=== PATIENT | male | born 1975 | race Caucasian/White ===

== ENCOUNTER 2021-09-09 04:03 | Inpatient (IN) | payer MEDICAID, SELFPAY ==
[2021-09-09 04:23] VITALS: BP 101/70; PULSE 96; RESP 16; TEMP 36.3; O2SAT 98
[2021-09-09 04:25] VITALS: BMI 20.2
[2021-09-09] MEDS: LORazepam 2 mg Tablet PO (04:48)
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
[2021-09-09] MEDS: fluoxetine 20 mg Capsule PO (10:18)
--- NOTE | 2021-09-09 12:04 | PC.OT ---
OT orders recieved and OT eval attempted x2 this date. Pt laying in bed, ignoring therapist x2 occassions. RN stated to be careful around pt. Will attempt Sunday.
[2021-09-09] MEDS: quetiapine 25 mg Tablet 50 MG PO (12:22)
[2021-09-09 14:00] VITALS: BP 118/81; PULSE 82; RESP 17; TEMP 36.6; O2SAT 97
[2021-09-09] MEDS: OLANZapine 5 mg ODT PO (16:50)
--- NOTE | 2021-09-09 16:51 | PC.NURSE ---
Patient at nurses station saying he is freaking out. Zydis 5 mg sl given.
[2021-09-09 22:00] VITALS: BP 118/81; PULSE 82; RESP 17; TEMP 36.6; O2SAT 97
[2021-09-10] MEDS: quetiapine 100 mg Tablet 500 MG PO ×2 (03:31→19:46)
[2021-09-10] MEDS: gabapentin 300 mg Capsule 600 MG PO ×4 (03:32→19:46)
[2021-09-10] MEDS: diazePAM 5 mg Tablet 10 MG PO ×2 (03:54→19:46)
[2021-09-10] MEDS: fluoxetine 20 mg Capsule PO (08:38)
[2021-09-10] MEDS: quetiapine 25 mg Tablet 50 MG PO ×2 (08:39→13:36)
--- NOTE | 2021-09-10 11:06 | W.PM.NPUPNS ---
Subjective NPU Subjective: He was noncompliant with vital signs and refused his bedtime medication last night. He came in requested them at 4:00 in the morning and was given them. He is now in bed with his head covered. It took quite a bit of coaxing to have him uncover his head. His speech is mostly unintelligible mumbling. I think he said something about hallucinations but I could not get him to say what the hallucinations were. He said something about wanting to be transferred to [place]. I could not understand why he wanted to be transferred. He could not tell me why he refused his medication last night. He tried to say something when I asked but it was only mumbling. He was very groggy and almost fell asleep while we were talking. Mental Status Exam MSE Comments: This is a 45-year-old thin male who appears approximately his stated age. Initially he was very groggy and difficult to talk to. He is bald. He is dressed in hospital scrubs. psychomotor activity is decreased Speech is difficult to understand and frequently mumbling. It became a little bit easier to understand as he woke up but still many words are mumbling and I cannot understand most of what he is saying. Alert after woken up. Attention and concentration appear to be normal. Memory is intact Mood is depressed. Affect is mildly dysphoric somewhat irritable Thought process is probably logical and goal-directed. Thought content: Admits to auditory but no visual hallucinations. No delusions or paranoia are noted. He continues to have suicidal ideation. No homicidal ideation. Fund of knowledge is average. Insight and judgment appear to be poor. Impulse control is poor. Cognition: Patient Appearance: Disheveled/Poor Hygiene Ability to Follow Directions: Good Patient Orientation (long list): Person and Place Comprehension Ability: No Impairment Hallucination Type: None Delusion Description: Not Present Thought Process: Circumstantial Affect: Affect Description: Flat Behavior: Patient Behavior: Withdrawn Speech Pattern: Clear Vitals/I&O/Wt Last Vital Signs Temp 97.9 F 09/09/21 22:00 Pulse 82 09/09/21 22:00 Resp 17 09/09/21 22:00 BP 118/81 09/09/21 22:00 Pulse Ox 97 09/09/21 22:00 Weight last 48 hrs Weight 64 kg A&P Assessment and plan (1) Methamphetamine abuse: Status: Acute (2) Alcoholic: Status: Acute (3) Major depressive disorder: Status: Acute (4) Psychosis: Status: Acute (5) Suicidal ideation: Status: Acute Plan This is a 45-year-old male who reports methamphetamine and alcohol addiction since age 17 and a previous diagnosis of OCD, bipolar and schizophrenia Plan: 1. Continue current medication. 2. Continue every 15 minute checks for safety. 3. Encourage individual, group and milieu therapies. 4. Encourage sober living treatment after discharge at the highest level of care to which he is willing to commit. 5. We will monitor for safety for himself in the community prior to discharge. Involuntary Hold Information 96 Hour Hold: 96 Hour Involuntary Admission: No Attestations NPU Medical Necessity Statement*: Inpatient hospitalization is medically necessary and the clinically appropriate intervention at this time. We will initiate medications and make changes as indicated. Coding Level of Care Code Acute Bell Clerk for Ham Kruse Diagnoses Methamphetamine abuse F15.10 Alcoholic F10.20 Major depressive disorder F32.9 Psychosis F29 Suicidal ideation R45.857
[2021-09-10 14:00] VITALS: BP 121/72; PULSE 99; RESP 15; TEMP 36.6; O2SAT 98
[2021-09-10] MEDS: hyDROXYzine 25 mg Capsule 50 MG PO (18:47)
--- NOTE | 2021-09-10 18:47 | PC.NURSE ---
prn VISTARIL 50 MG GIVEN PO PER PT C/O STATED ANXIETY
[2021-09-10 20:41] VITALS: BP 104/75; PULSE 94; RESP 20; TEMP 36.6; O2SAT 97
[2021-09-11 06:00] VITALS: BP 100/68; PULSE 98; RESP 18; TEMP 36.8; O2SAT 94
[2021-09-11] MEDS: fluoxetine 20 mg Capsule PO (08:30)
[2021-09-11] MEDS: quetiapine 25 mg Tablet 50 MG PO ×2 (08:30→12:29)
[2021-09-11] MEDS: gabapentin 300 mg Capsule 600 MG PO ×3 (08:30→21:13)
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
[2021-09-11 13:35] VITALS: BP 85/52; PULSE 108; RESP 18; TEMP 36.7; O2SAT 99
[2021-09-11 20:44] VITALS: BP 94/58; PULSE 83; RESP 16; TEMP 36.5; O2SAT 92
[2021-09-11] MEDS: quetiapine 100 mg Tablet 500 MG PO (21:12)
[2021-09-11] MEDS: diazePAM 5 mg Tablet 10 MG PO (21:12)
[2021-09-12 06:00] VITALS: BP 98/63; PULSE 72; RESP 14; TEMP 36.7; O2SAT 96
[2021-09-12] MEDS: gabapentin 300 mg Capsule 600 MG PO ×3 (07:54→20:24)
[2021-09-12] MEDS: quetiapine 25 mg Tablet 50 MG PO ×2 (07:54→12:45)
[2021-09-12] MEDS: fluoxetine 20 mg Capsule 40 MG PO (07:55)
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
[2021-09-12] MEDS: hyDROXYzine 25 mg Capsule 50 MG PO (12:17)
--- NOTE | 2021-09-12 12:18 | PC.NURSE ---
Patient at nurses station requesting medication for anxiety. Hydroxizine 50 mg po given for this.
[2021-09-12 14:00] VITALS: BP 95/64; PULSE 108; RESP 17; TEMP 36.5; O2SAT 98
[2021-09-12] MEDS: quetiapine 100 mg Tablet 500 MG PO (20:24)
[2021-09-12] MEDS: diazePAM 5 mg Tablet 10 MG PO (20:24)
[2021-09-12 20:35] VITALS: BP 108/71; PULSE 103; RESP 16; TEMP 37.2; O2SAT 98
[2021-09-13 06:00] VITALS: RESP 18
[2021-09-13] MEDS: quetiapine 25 mg Tablet 50 MG PO ×2 (08:47→13:22)
[2021-09-13] MEDS: fluoxetine 20 mg Capsule 40 MG PO (08:47)
[2021-09-13] MEDS: gabapentin 300 mg Capsule 600 MG PO ×3 (08:48→20:27)
[2021-09-13] MEDS: hyDROXYzine 25 mg Capsule 50 MG PO (11:58)
--- NOTE | 2021-09-13 12:00 | PC.NURSE ---
Hydroxyzine 50 mg po given for complaints of anxiety.
[2021-09-13 14:00] VITALS: RESP 18
--- NOTE | 2021-09-13 14:21 | PC.SOCIAL ---
Patient did not attend group.
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
[2021-09-13] MEDS: acetaminophen 325 mg Tablet 650 MG PO (16:10)
--- NOTE | 2021-09-13 16:12 | PC.NURSE ---
Patient voices c/o headache. Give tylenol 650 mg po for this.
[2021-09-13] MEDS: diazePAM 5 mg Tablet 10 MG PO (20:27)
[2021-09-13] MEDS: quetiapine 100 mg Tablet 500 MG PO (20:27)
[2021-09-13 21:22] VITALS: BP 108/71; PULSE 93; RESP 19; TEMP 36.8; O2SAT 97
[2021-09-14 06:00] VITALS: BP 105/67; PULSE 97; RESP 17; TEMP 36.1; O2SAT 92
[2021-09-14] MEDS: gabapentin 300 mg Capsule 600 MG PO (08:31)
[2021-09-14] MEDS: fluoxetine 20 mg Capsule 40 MG PO (08:31)
[2021-09-14] MEDS: quetiapine 25 mg Tablet 50 MG PO ×2 (08:31→11:49)
--- NOTE | 2021-09-14 10:38 | W.PM.NPUDCS ---
Diagnoses at Discharge Discharge Diagnosis (1) Methamphetamine abuse: Status: Acute (2) Alcoholic: Status: Acute (3) Major depressive disorder: Status: Acute (4) Psychosis: Status: Acute (5) Suicidal ideation: Status: Acute Reason for Visit Reason for Visit: ETOH, Resp failure Brief History: [facility] [address] [place] [address] History & Physical Report Signed Patient: Lake Ken MR#: [id number] : 1975 Age/Sex: 45 / M HPI NPU History of Present Illness Lake Ken?is a 45-year-old male who was transferred from [facility] in [facility].? He was evidently kicked out of a correction house because of alcohol intoxication.? He says that he intentionally drank enough to try to kill himself.? He was found passed out behind a dumpster.? He required intubation.? When he was extubated he started making numerous suicidal statements.? He said that he was worthless and deserves to .? He did not want to be alive anymore.? He says that he has given drugs to many people and wound up in the lives.? He has been using alcohol and methamphetamine to excess since he was 16 years old.? The longest time he has been free from methamphetamine was about 6 months.? He says he hears voices even when he is not using methamphetamine.? He says that he has been diagnosed with depression, anxiety, OCD, bipolar and schizophrenia.? He could not tell me what OCD symptoms he had.? He became belligerent several times in the hospital.? 1 time he required restraints after destroying a sink and banging the window in his room.? He tried to escape his room.? Psychiatry was consulted and recommended Seroquel titrated up to 50 mg twice a day and 500 mg at bedtime.? Valium, 10 mg at bedtime, Prozac 20 mg every morning.? He has been on those medications for the last couple of weeks.? He was given Xanax and Ativan at times but those were discontinued when the Valium was started.? He was also given some doses of Geodon presumably for agitation.? He was not interested in talking this morning.? I woke him up and he had a hard time waking up.? Once he woke up he wanted to go get breakfast and did not want to talk.? He said that he had been on Seroquel 500 mg at bedtime and Valium 20 mg at bedtime.? I had not reviewed his records at that point and said I did not know whether we would give him the Valium or not.? He has spent time in care home and may have charges pending. Hospital Course Hospital Course He slowly acclimated to the individual, group and milieu therapies provided. He was continued on the same medications that they had been giving him at the hospital in [place]. Seroquel 500 mg at bedtime and 50 mg twice daily, Valium 10 mg at bedtime and gabapentin 600 mg 3 times daily. They have been giving Prozac 20 mg and it was increased to 40 mg after 2 days. He tolerated these doses and showed steady improvement during his stay. He was able to contract for safety outside hospital prior to discharge. During the hospitalization, patient had routine laboratory studies which were within normal limits except for few outliers. Additionally there was a general medical evaluation which was also within normal limits and revealed no new acute processes. Discharge Summary: At the time of discharge, lethality was denied and psychosis was resolving. Mood and anxiety were well managed. Patient endorsed a plan to follow-up with the aftercare recommendations of the treatment team. Patient was evaluated and deemed to be absent credible lethality, and had achieved the maximum benefit from an inpatient hospitalization, so was discharged. Involuntary Hold Information 96 Hour Hold: 96 Hour Involuntary Admission: No Mental Status Exam MSE Comments: This is a 45-year-old thin male who appears approximately his stated age.? He was walking in the hallway at 2:30 PM.? He is bald.? He is dressed in hospital scrubs. psychomotor activity is increased Speech is normal today there is no mumbling in his words are articulated well. Alert and oriented Attention and concentration appear to be normal. Memory is intact Mood is depressed.? Affect is mildly dysphoric less irritable today. Thought process is probably logical and goal-directed. Thought content: Admits to auditory but no visual hallucinations.? No delusions or paranoia are noted.? He denies suicidal ideation..? No homicidal ideation.? Fund of knowledge is average. Insight and judgment appear to be a little better but still only fair at best.? Impulse control is poor. Discharge Data Vitals: Last Vital Signs Temp 96.9 F L 09/14/21 06:00 Pulse 97 09/14/21 06:00 Resp 17 09/14/21 06:00 BP 105/67 09/14/21 06:00 Pulse Ox 92 09/14/21 06:00 Discharge Plan Discharge Patient Disposition: Home Condition: Stable Prescriptions: New diazepam 5 mg Tablet 10 mg PO BEDTIME 30 Days Qty: 60 0RF fluoxetine 40 mg capsule 40 mg PO DAILY 30 Days Qty: 3 1RF quetiapine 100 mg Tablet 500 mg PO BEDTIME 30 Days Qty: 150 1RF quetiapine 50 mg tablet 50 mg PO 0800,1300 30 Days Qty: 60 1RF Continued gabapentin 600 mg tablet 600 mg PO TID 30 Days Qty: 90 1RF Discharge Orders: Discharge Order (Routine); Ordered 09/14/21 Ordered By: Allen Wen Referrals: [facility] [Other] - 09/30/21 12:30 pm (New appointment with Dr. Ortega) [facility] [Other] (Walk in Sunday -Sunday 8:00 am to 4:00 pm. ) Discharge Diet: Regular Discharge Activity: Resume usual activity Patient Instructions: Opioid Safety Discharge Attestations NPU Time Spent in Discharge Care*: less than 30 min Specific Discharge Activities: Specific discharge activities: educating patient, discussing with case therapist/social workers/dc planners, documenting/other paperwork and evaluating patient/reviewing data Coding Level of Care Code Acute Chg DC note Diagnoses Methamphetamine abuse F15.10 Alcoholic F10.20 Major depressive disorder F32.9 Psychosis F29 Suicidal ideation R45.858
[2021-09-14 10:48] VITALS: BP 105/67; PULSE 97; RESP 17; TEMP 36.1; O2SAT 92
== END 2021-09-14 11:55 | disposition home or self-care (01) | DRG 885 ==
PROVIDERS: Admitting Provider Psychiatry & Neurology Psychiatry; Visit Provider Psychiatry & Neurology Psychiatry
DX: F25.0 Schizoaffective disorder, bipolar type (principal); R45.851 Suicidal ideations; F10.229 Alcohol dependence with intoxication, unspecified; F15.10 Other stimulant abuse, uncomplicated; F41.9 Anxiety disorder, unspecified; F42.9 Obsessive-compulsive disorder, unspecified
CPT/HCPCS: 97150; 97165